=== PATIENT | male | born 1990 | race Hispanic/Latino ===

== ENCOUNTER 2017-11-09 00:10 | Emergency (ER) | payer OTHER ==
[2017-11-09 00:24] VITALS: BMI 28.7
[2017-11-09 00:28] VITALS: RESP 17; O2SAT 98
--- NOTE | 2017-11-09 02:34 | ED PDOC ---
Arrival/HPI - General Historian: Patient - History of Present Illness Time/Duration: Other (2 days) Symptom Onset: Gradual Symptom Course: Worsening Quality: Aching Severity Level: 4 - General Chief Complaint: Flu-like Symptoms Time Seen by Provider: 11/09/17 01:00 - History of Present Illness Narrative History of Present Illness (Text): 11/09/17 02:45 27-year-old male presents today with sore throat and nasal congestion since yesterday and cough that started today with subjective fevers and chills at home and took [id number] medications for cough/cold without improvement.Patient denies sick contacts. Complaining of a slight headache. Complaining of body aches. No nausea or vomiting. No abdominal pain. Denies dizziness or weakness. No other complaints (Theresa Gonzalez) Past Medical History - Provider Review Nursing Documentation Reviewed: Yes - Travel History Have you recently traveled outside [place] w/in the past 3 mons?: No - Infectious Disease Hx of Infectious Diseases: None - Tetanus Immunization Tetanus Immunization: Up to Date - Psychiatric Hx Substance Use: No - Anesthesia Hx Anesthesia: No Family/Social History - Physician Review Nursing Documentation Reviewed: Yes Family/Social History: Unknown Family HX Smoking Status: Never Smoked Hx Alcohol Use: No Hx Substance Use: No Allergies/Home Meds Allergies/Adverse Reactions: Allergies No Known Allergies Allergy (Verified 11/09/17 00:24) Review of Systems - Review of Systems Constitutional: absent: Fatigue, Fevers ENT: Sore Throat, Sinus Congestion Respiratory: Cough. absent: SOB Cardiovascular: absent: Chest Pain, Palpitations Gastrointestinal: absent: Abdominal Pain, Nausea, Vomiting Genitourinary Male: absent: Dysuria Musculoskeletal: absent: Arthralgias, Back Pain, Neck Pain Skin: absent: Rash, Pruritis Neurological: Headache. absent: Dizziness Psychiatric: absent: Anxiety, Depression, Suicidal Ideation Physical Exam Vital Signs Reviewed: Yes Temperature: Afebrile Blood Pressure: Normal Pulse: Regular Respiratory Rate: Normal Appearance: Positive for: Well-Appearing, Non-Toxic, Comfortable Pain Distress: None Mental Status: Positive for: Alert and Oriented X 3 - Systems Exam Head: Present: Atraumatic Conjunctiva: Present: Normal Ears: Present: Normal, NORMAL TM Mouth: Present: Moist Mucous Membranes Pharnyx: Present: Normal. No: ERYTHEMA, EXUDATE, TONSILS ENLARGED, Peritonsilar Swelling, Uvular Deviation, Muffled/Hoarse Voice Nose (External): Present: Atraumatic Nose (Internal): Present: Normal Inspection Neck: Present: Normal Range of Motion, Trachea Midline. No: Lymphadenopathy Respiratory/Chest: Present: Clear to Auscultation, Good Air Exchange. No: Respiratory Distress, Accessory Muscle Use Cardiovascular: Present: Regular Rate and Rhythm, Normal S1, S2. No: Murmurs Abdomen: Present: Normal Bowel Sounds. No: Tenderness, Distention, Peritoneal Signs, Rebound, Guarding Back: Present: Normal Inspection Upper Extremity: Present: Normal ROM Lower Extremity: Present: Normal ROM Neurological: Present: GCS=15, Speech Normal Skin: Present: Warm, Dry, Normal Color. No: Rashes Psychiatric: Present: Alert, Oriented x 3 Vital Signs Temp Pulse Resp BP Pulse Ox 11/09/17 02:46 98.2 F 73 17 137/73 98 11/09/17 00:28 98.9 F 78 17 138/79 98 Medical Decision Making ED Course and Treatment: 11/09/17 02:49 Patient is nontoxic well-appearing in no distress. Vital signs are stable. tylenol toradol rapid flu; negative Zithromax tamiflu patient reassessment: Patient nontoxic, well-appearing, in no distress. Stable vital signs. Feeling better after medications I advised follow up with primary care physician within the next 2 days. I advised increase fluids and return if symptoms worsen persist or if new symptoms develop. Patient verbalizes understanding of discharge instructions and need for immediate followup. all aspects of this case were discussed the attending of record. IMPRESSION; cough, sore throat Motrin one tablet every 6 hours as needed for pain Zithromax one tablet once daily x4 days tamiflu; 1 tablet twice daily x 5 days. Increase fluids Followup with primary care physician the next 2 days Return if symptoms worsen persist or if new symptoms develop (Theresa Gonzalez) - Lab Interpretations Lab Results: Lab Results 11/09/17 01:20: Influenza Typ A,B (EIA) Negative for flu a/b - Medication Orders Current Medication Orders: Discontinued Medications Acetaminophen (Tylenol 325mg Tab) 975 mg PO STAT STA Stop: 11/09/17 01:01 Last Admin: 11/09/17 01:12 Dose: 975 mg MAR Pain/Vitals Document 11/09/17 01:12 IT (Rec: 11/09/17 01:12 IT [email or web address] Pain Reassessment Is This A Pain ReAssessment? No Sleep Is patient sleeping during reassessment? No Presence of Pain Presence of Pain No Azithromycin (Zithromax) 500 mg PO STAT STA PRN Reason: Protocol Stop: 11/09/17 02:28 Last Admin: 11/09/17 02:44 Dose: 500 mg Ketorolac Tromethamine (Toradol) 60 mg IM STAT STA Stop: 11/09/17 01:03 Last Admin: 11/09/17 01:12 Dose: 60 mg MAR Pain Assessment Document 11/09/17 01:12 IT (Rec: 11/09/17 01:12 IT [email or web address] Pain Reassessment Is this a pain reassessment? No Sleep Is patient sleeping during reassessment? No Presence of Pain Presence of Pain Yes Pain Scale Used Pain Scale Used Numeric IM Administration Charges Document 11/09/17 01:12 IT (Rec: 11/09/17 01:12 [email or web address] Charges for Administration # of IM Administrations 1 Oseltamivir Phosphate (Tamiflu Cap) 75 mg PO STAT STA PRN Reason: Protocol Stop: 11/09/17 02:28 Last Admin: 11/09/17 02:43 Dose: 75 mg Disposition/Present on Arrival - Present on Arrival Any Indicators Present on Arrival: No History of DVT/PE: No History of Uncontrolled Diabetes: No Urinary Catheter: No History of Decub. Ulcer: No History Surgical Site Infection Following: None - Disposition Have Diagnosis and Disposition been Completed?: Yes Disposition Time: 02:30 Patient Plan: Discharge - Disposition Diagnosis: Cough, Sore throat Disposition: HOME/ ROUTINE Condition: GOOD Discharge Instructions (ExitCare): Acute Cough (ED) Additional Instructions: Motrin one tablet every 6 hours as needed for pain Zithromax one tablet once daily x4 days tamiflu; 1 tablet twice daily x 5 days. Increase fluids Followup with primary care physician the next 2 days Return if symptoms worsen persist or if new symptoms develop Prescriptions: Azithromycin [Zithromax] 250 mg PO DAILY #4 tab Ibuprofen [Motrin] 600 mg PO Q6H PRN #20 tab PRN Reason: pain/fever reduction Oseltamivir [Tamiflu] 75 mg PO BID #10 cap Referrals: Clarisa Guerra MD [Staff Provider] - Follow up with primary [facility] [place] - Follow up with primary Forms: [employer] (Pashto)
[2017-11-09 03:01] VITALS: BP 137/73; PULSE 73; TEMP 98.2
== END 2017-11-09 02:44 | disposition home or self-care (01) ==
LOC: ED 00:10
DX: J02.9 Acute pharyngitis, unspecified (principal); R05 Cough
CPT/HCPCS: 87804; 96372; 99283; J1885